=== PATIENT | female | born 1975 | race Caucasian/White ===

== ENCOUNTER 2018-01-08 13:40 | Emergency (ER) | payer MEDICAID ==
[~2018-01-08] VITALS: Ht 170.2 cm; Wt 108.9 kg
[2018-01-08 13:47] VITALS: BP_SYST 161
[2018-01-08] MEDS ORDERED: BACITRACIN 1 GM OINT TP ONE (14:15)
[2018-01-08] MEDS ORDERED: IBUPROFEN 600 MG TABLET PO ONE (14:15)
[2018-01-08 14:17] VITALS: BP_SYST 152
== END 2018-01-08 14:15 | disposition home or self-care (01) ==
LOC: SED 13:40
DX: S01.111A Laceration without foreign body of right eyelid and periocular area, initial encounter (principal); R03.0 Elevated blood-pressure reading, without diagnosis of hypertension; X58.XXXA Exposure to other specified factors, initial encounter; Y93.64 Activity, baseball; Y92.89 Other specified places as the place of occurrence of the external cause; Y99.8 Other external cause status
CPT/HCPCS: 81025; 99283